=== PATIENT | female | born 1975 | race Caucasian/White ===

== ENCOUNTER 2017-12-21 10:44 | Emergency (ER) | payer OTHER ==
[~2017-12-21] VITALS: Ht 170.1 cm; Wt 54.4 kg
[~2017-12-21 10:44] MED LIST: CYCLOBENZAPRINE10 MG PO; NAPROSYN500 MG PO
[2017-12-21] MEDS ORDERED: NAPROSYN500 MG PO (10:54)
== END 2017-12-21 12:45 | disposition home or self-care (01) ==
LOC: ED 10:44
DX: M79.642 Pain in left hand (principal); R03.0 Elevated blood-pressure reading, without diagnosis of hypertension; Z88.4 Allergy status to anesthetic agent

== ENCOUNTER 2021-07-01 12:55 | Inpatient (IN) | payer OTHER ==
[~2021-07-01] VITALS: Ht 170.1 cm; Wt 63.5 kg
[2021-07-01 13:45] VITALS: BP 135/115
[2021-07-01 14:27] LABS: BASO # 0.1 10*3/uL (0.0-0.1); BASO % 0.7 % (0.0-1.0); EOS # 0.1 10*3/uL (0.0-0.4); EOS % 0.5 % (1.0-4.0); HEMATOCRIT 47.7 % (37.0-47.0); LYMPH # 2.1 10*3/uL (1.3-4.4); LYMPH % 19.9 % (27.0-41.0); MEAN CELL VOLUME 95.8 fl (81.0-99.0); MEAN CORPUSCULAR HGB 32.3 pg (27.0-31.0); MEAN CORPUSCULAR HGB CONC 33.8 g/dl (33.0-37.0); MEAN PLATELET VOLUME 8.6 fl (9.6-12.3); MONO # 1.2 10*3/uL (0.1-1.0); MONO % 11.7 % (3.0-9.0); NEUT # 6.9 10*3/uL (2.3-7.9); NEUT % 66.6 % (47.0-73.0); PLATELET COUNT AUTOMATED 344 10*3/uL (130-400); RED BLOOD COUNT 4.98 10*6/uL (4.10-5.10); RED CELL DISTRI WIDTH 12.4 % (0-14.5); WHITE BLOOD COUNT 10.3 10*3/uL (4.8-10.8)
[2021-07-01 14:51] LABS: ALBUMIN 3.8 gm/dl (3.1-4.5); ALKALINE PHOSPHATASE 91 U/L (45-117); BUN 8 mg/dl (7-24); CHLORIDE 98 mmol/L (98-107); CREATININE 0.51 mg/dL (0.55-1.02); POTASSIUM 3.2 mmol/L (3.5-5.1); SGOT/AST 15 IU/L (3-35); SGPT/ALT 25 U/L (12-78); SODIUM 137 mmol/L (136-145); TOTAL PROTEIN 8.6 gm/dL (6.4-8.2)
[2021-07-01 20:00] VITALS: BP 141/91
[2021-07-02 00:30] VITALS: BP 140/92
[2021-07-02 05:17] LABS: ALBUMIN 3.2 gm/dl (3.1-4.5); ALKALINE PHOSPHATASE 78 U/L (45-117); BUN 12 mg/dl (7-24); CHLORIDE 101 mmol/L (98-107); CPK 82 U/L (26-192); CREATININE 0.46 mg/dL (0.55-1.02); LDH 129 U/L (84-246); SGOT/AST 13 IU/L (3-35); SGPT/ALT 24 U/L (12-78); SODIUM 135 mmol/L (136-145); TOTAL PROTEIN 7.5 gm/dL (6.4-8.2)
[2021-07-02 05:31] VITALS: BP 135/98
[2021-07-02 05:45] LABS: POTASSIUM 4.3 mmol/L (3.5-5.1)
[2021-07-02 06:09] LABS: BASO % 0.4 % (0.0-1.0); HEMATOCRIT 44.7 % (37.0-47.0); LYMPH % 13.6 % (27.0-41.0); MEAN CELL VOLUME 97.4 fl (81.0-99.0); MEAN CORPUSCULAR HGB 32.2 pg (27.0-31.0); MEAN CORPUSCULAR HGB CONC 33.1 g/dl (33.0-37.0); MONO # 0.4 10*3/uL (0.1-1.0); MONO % 6.2 % (3.0-9.0); NEUT # 5.6 10*3/uL (2.3-7.9); NEUT % 79.4 % (47.0-73.0); PLATELET COUNT AUTOMATED 333 10*3/uL (130-400); RED BLOOD COUNT 4.59 10*6/uL (4.10-5.10); RED CELL DISTRI WIDTH 12.5 % (0-14.5); WHITE BLOOD COUNT 7.1 10*3/uL (4.8-10.8)
[2021-07-02 07:35] LABS: ABG BASE EXCESS 2.2 mmol/L (-2.0-2.0); ARTERIAL BLOOD GAS PH 7.418 (7.35-7.45); ARTERIAL BLOOD GAS PO2 63.7 (80-90)
[2021-07-02 08:18] VITALS: BP 136/92
[2021-07-02 10:03] VITALS: BP 140/100
[2021-07-02 16:59] VITALS: BP 140/87; BP 144/98
[2021-07-02 22:00] VITALS: BP 142/87
[2021-07-03 04:00] VITALS: BP 138/62
[2021-07-03 06:08] LABS: CHLORIDE 103 mmol/L (98-107); POTASSIUM 3.6 mmol/L (3.5-5.1); SODIUM 138 mmol/L (136-145)
[2021-07-03 06:13] LABS: BUN 10 mg/dl (7-24); CREATININE 0.41 mg/dL (0.55-1.02)
[2021-07-03 06:36] LABS: HEMATOCRIT 43.7 % (37.0-47.0); MEAN CELL VOLUME 97.8 fl (81.0-99.0); MEAN CORPUSCULAR HGB 32.2 pg (27.0-31.0); MEAN PLATELET VOLUME 8.7 fl (9.6-12.3); PLATELET COUNT AUTOMATED 357 10*3/uL (130-400); RED BLOOD COUNT 4.47 10*6/uL (4.10-5.10); RED CELL DISTRI WIDTH 12.4 % (0-14.5); WHITE BLOOD COUNT 16.5 10*3/uL (4.8-10.8)
[2021-07-03 07:21] VITALS: BP 126/80
[2021-07-03 07:56] LABS: ATYPICAL LYMPHS 2 % (0-0); PLATELET SUFFICIENCY NORMAL (NORMAL); TOTAL CELLS COUNTED 100 #CELLS
[2021-07-03 08:32] VITALS: BP 126/80
[2021-07-03 12:30] VITALS: BP 121/75
[2021-07-03 18:58] VITALS: BP 136/85
[2021-07-04] VITALS: BP 119/83
[2021-07-04 04:32] VITALS: BP 110/83
[2021-07-04 08:00] VITALS: BP 110/78
[2021-07-04 12:00] VITALS: BP 116/72
[2021-07-04] MEDS ORDERED: VENT7GM INH (13:58)
[2021-07-04] MEDS ORDERED: LEVOFLOXACIN750 M2 PO (13:58)
[2021-07-04] MEDS ORDERED: PREDNISONE10 MG PO (13:58)
[2021-07-04 16:00] VITALS: BP 116/72
== END 2021-07-04 17:33 | disposition home or self-care (01) | DRG 720 ==
LOC: ED 12:55 → EDHOLD 16:01
PROVIDERS: Family Medicine; Internal Medicine; Student in an Organized Health Care Education/Training Program; ADMIT Emergency Medicine; ATTEND Emergency Medicine
DX: A41.9 Sepsis, unspecified organism (principal); J18.9 Pneumonia, unspecified organism; J96.01 Acute respiratory failure with hypoxia; E87.1 Hypo-osmolality and hyponatremia; R65.20 Severe sepsis without septic shock; E44.0 Moderate protein-calorie malnutrition; Z20.822 Contact with and (suspected) exposure to COVID-19; E87.6 Hypokalemia; R73.9 Hyperglycemia, unspecified; I10 Essential (primary) hypertension; J43.9 Emphysema, unspecified; Z80.1 Family history of malignant neoplasm of trachea, bronchus and lung; Z88.5 Allergy status to narcotic agent; Z68.21 Body mass index [BMI] 21.0-21.9, adult

== ENCOUNTER → 2023-03-14 | Outpatient (CLI) | payer OTHER ==
[~2023-03-14] MED LIST changes: +BENZONATATE100 M1 PO; +LEVOFLOXACIN750 M2 PO; +LOSARTAN POTASS25 M1 PO; +PREDNISONE10 MG PO; +VENT7GM INH; +ZITHROMAX250 MG PO
== END | disposition home or self-care (01) ==
LOC: US 09:30
PROVIDERS: ATTEND Family Medicine
DX: K80.20 Calculus of gallbladder without cholecystitis without obstruction (principal); R10.2 Pelvic and perineal pain; R10.84 Generalized abdominal pain

== ENCOUNTER 2023-04-09 11:33 | Emergency (ER) | payer OTHER ==
[~2023-04-09] VITALS: Ht 170.1 cm; Wt 65.8 kg
[2023-04-09] MEDS ORDERED: NAPROSYN500 MG PO (12:06)
[2023-04-09] MEDS ORDERED: CYCLOBENZAPRINE10 MG PO (12:06)
== END 2023-04-09 12:11 | disposition home or self-care (01) ==
LOC: ED 11:33
DX: H60.92 Unspecified otitis externa, left ear (principal); M54.50 Low back pain, unspecified; J45.909 Unspecified asthma, uncomplicated; I10 Essential (primary) hypertension; Z88.8 Allergy status to other drugs, medicaments and biological substances; Z90.89 Acquired absence of other organs; Z98.890 Other specified postprocedural states; F12.90 Cannabis use, unspecified, uncomplicated; F17.200 Nicotine dependence, unspecified, uncomplicated

== ENCOUNTER → 2023-04-13 | Outpatient (CLI) | payer OTHER | END | disposition home or self-care (01) | LOC: RAD 09:37 | PROVIDERS: ATTEND Family Medicine | DX: M47.817 Spondylosis without myelopathy or radiculopathy, lumbosacral region (principal) ==

== ENCOUNTER 2023-08-20 11:51 | Emergency (ER) | payer OTHER ==
[~2023-08-20] VITALS: Ht 170.1 cm; Wt 68.0 kg
[2023-08-20 13:21] LABS: BASO # 0.1 10*3/uL (0.0-0.1); BASO % 1.1 % (0.0-1.0); EOS # 0.1 10*3/uL (0.0-0.4); EOS % 1.1 % (1.0-4.0); HEMATOCRIT 49.9 % (37.0-47.0); LYMPH # 2.3 10*3/uL (1.3-4.4); LYMPH % 37.3 % (27.0-41.0); MEAN CELL VOLUME 96.5 fl (81.0-99.0); MEAN CORPUSCULAR HGB 33.3 pg (27.0-31.0); MEAN CORPUSCULAR HGB CONC 34.5 g/dl (33.0-37.0); MEAN PLATELET VOLUME 8.6 fl (9.6-12.3); MONO # 0.7 10*3/uL (0.1-1.0); MONO % 11.3 % (3.0-9.0); NEUT # 3.1 10*3/uL (2.3-7.9); NEUT % 48.9 % (47.0-73.0); PLATELET COUNT AUTOMATED 263 10*3/uL (130-400); RED BLOOD COUNT 5.17 10*6/uL (4.10-5.10); RED CELL DISTRI WIDTH 12.7 % (0-14.5); WHITE BLOOD COUNT 6.3 10*3/uL (4.8-10.8)
[2023-08-20 13:39] LABS: ALKALINE PHOSPHATASE 92 U/L (46-116); BUN 10 mg/dl (9-23); CHLORIDE 103 mmol/L (98-107); LIPASE 38 U/L (12-53); POTASSIUM 3.9 mmol/L (3.4-5.1); SGPT/ALT 17 U/L (5-49); TOTAL PROTEIN 8.1 gm/dL (6.0-8.0)
[2023-08-20] MEDS ORDERED: CIPRO500 MG PO (14:35)
== END 2023-08-20 14:50 | disposition home or self-care (01) ==
LOC: ED 11:51
PROVIDERS: Physician Assistant Medical
DX: K80.50 Calculus of bile duct without cholangitis or cholecystitis without obstruction (principal); H60.93 Unspecified otitis externa, bilateral; R11.2 Nausea with vomiting, unspecified; J45.909 Unspecified asthma, uncomplicated; I10 Essential (primary) hypertension; Z88.8 Allergy status to other drugs, medicaments and biological substances; Z90.89 Acquired absence of other organs; Z98.890 Other specified postprocedural states; F17.290 Nicotine dependence, other tobacco product, uncomplicated

== ENCOUNTER → 2023-12-10 | Outpatient (CLI) | payer OTHER ==
[~2023-12-10] MED LIST changes: +CIPRO500 MG PO
[2023-12-10 11:23] LABS: BASO # 0.1 10*3/uL (0.0-0.1); BASO % 1.2 % (0.0-1.0); BILIRUBIN Negative (Negative); BLOOD Trace-Lysed (Negative); CLARITY Clear (Clear); COLOR Yellow (Yellow); EOS # 0.1 10*3/uL (0.0-0.4); EOS % 1.2 % (1.0-4.0); GLUCOSE Negative (Negative); HEMATOCRIT 44.7 % (37.0-47.0); KETONE Negative (Negative); LEUKO ESTERASE Negative (Negative); LYMPH # 2.5 10*3/uL (1.3-4.4); LYMPH % 38.8 % (27.0-41.0); MEAN CELL VOLUME 95.5 fl (81.0-99.0); MEAN CORPUSCULAR HGB 32.9 pg (27.0-31.0); MEAN CORPUSCULAR HGB CONC 34.5 g/dl (33.0-37.0); MEAN PLATELET VOLUME 9.3 fl (9.6-12.3); MONO # 0.6 10*3/uL (0.1-1.0); MONO % 9.2 % (3.0-9.0); NEUT # 3.2 10*3/uL (2.3-7.9); NEUT % 49.4 % (47.0-73.0); NITRITE Negative (Negative); PH 5.5 (4.5-8.0); PLATELET COUNT AUTOMATED 199 10*3/uL (130-400); RED BLOOD COUNT 4.68 10*6/uL (4.10-5.10); RETICULOCYTE % 0.82 % (0.50-2.50); UROBILINOGEN 0.2 E.U./dl (0.0-1.0); WHITE BLOOD COUNT 6.6 10*3/uL (4.8-10.8)
[2023-12-10 11:58] LABS: ALKALINE PHOSPHATASE 64 U/L (46-116); BUN 10 mg/dl (9-23); CHLORIDE 105 mmol/L (98-107); CHOLESTEROL 138 mg/dL (<200); GAMMA GLUTAMYL TRANSPEPTIDASE 65 U/L (0-73); LDL CHOLESTEROL 34 mg/dL (9-159); POTASSIUM 3.8 mmol/L (3.4-5.1); SGPT/ALT 24 U/L (5-49); T3 UPTAKE 32.9 % (22.4-36.7); THYROXINE (T4) TOTAL 3.9 ug/dl (4.5-10.9); TOTAL PROTEIN 6.6 gm/dL (6.0-8.0); TRIGLYCERIDES 165 mg/dl (<150)
[2023-12-10 11:59] LABS: VITAMIN D, 25-HYDROXY 10.7 ng/mL (30-100)
[2023-12-10 12:13] LABS: BACTERIA TRACE
[2023-12-10 12:14] LABS: RBC 0-2 rbc/hpf (0-2); WBC 0-2 wbc/hpf (0-5)
== END | disposition home or self-care (01) ==
LOC: LAB 01:31
PROVIDERS: ATTEND Family Medicine
DX: R06.02 Shortness of breath (principal); R79.89 Other specified abnormal findings of blood chemistry; R53.83 Other fatigue; E78.5 Hyperlipidemia, unspecified; E55.9 Vitamin D deficiency, unspecified